=== PATIENT | female | born 1975 | race Hispanic/Latino ===

== ENCOUNTER 2022-08-03 09:17 | Emergency (ER) | payer SELFPAY ==
[2022-08-03] MEDS ORDERED: Ketorolac Tromethamine 30 MG/ML VIAL ONE (09:49)
== END 2022-08-03 10:53 | disposition home or self-care (01) ==
LOC: ERS 09:17
DX: S40.022A Contusion of left upper arm, initial encounter (principal); E11.9 Type 2 diabetes mellitus without complications; E78.00 Pure hypercholesterolemia, unspecified; I10 Essential (primary) hypertension; W18.31XA Fall on same level due to stepping on an object, initial encounter
CPT/HCPCS: 96372; J1885